=== PATIENT | male | born 1935 | race Caucasian/White ===

== ENCOUNTER 2017-06-22 16:21 | Emergency (ER) | payer MEDICARE, OTHER ==
[~2017-06-22] VITALS: Ht 167.6 cm; Wt 77.0 kg
[2017-06-22 16:23] VITALS: Ht 167.6 cm; Wt 77.0 kg
--- NOTE | 2017-06-22 17:42 | ERA ---
ER Documentation Chief Complaint Date/Time DATE: 06/22/17 TIME: 17:42 Chief Complaint urinary retention,dysuria since tuesday HPI The patient is a 82-year-old male, presenting with dysuria, polyuria for the last couple days. He denies similar symptoms previously, denies fever, chills, neck pain, chest pain, abdominal pain, vomiting, diarrhea. He complains of constipation for the last couple days. He smokes, denies drinking next Past medical history: BPH, hypertension next Past surgical history: None ROS All systems reviewed and are negative except as per history of present illness. Medications Home Meds Active Scripts Ciprofloxacin Hcl* (Ciprofloxacin Hcl*) 500 Mg Tablet, 250 MG PO BID for 10 Days , TAB Prov:SHIRLEY MCNEIL MD 06/22/17 Reported Medications Ergocalciferol (Vitamin D2) (VITAMIN D2) 50,000 Unit Capsule, 18608 UNIT PO Q7D , CAP 06/22/17 Valsartan-Hydrochlorothiazide (Valsartan-HCTZ) 160-12.5 Mg Tablet, 1 TAB PO DAILY, #30 TAB 06/22/17 Aspirin* (Aspirin* EC) 81 Mg Tablet.dr, 81 MG PO DAILY, TAB 06/22/17 Tamsulosin Hcl* (Tamsulosin Hcl*) 0.4 Mg Cap.er.24h, 0.4 MG PO HS, CAP 06/22/17 Allergies Allergies: Coded Allergies: No Known Allergy (Unverified , 06/22/17) PMhx/Soc History of Surgery: Yes Anesthesia Reaction: No Hx Neurological Disorder: No Hx Respiratory Disorders: No Hx Cardiac Disorders: Yes (HTN) Hx Psychiatric Problems: No Hx Miscellaneous Medical Probl: Yes (BPH) Hx Alcohol Use: Yes (OCCASSIONAL) Hx Substance Use: No Hx Tobacco Use: Yes (CIGARETTE 2 PACKS/DAY) Physical Exam Vitals Vital Signs Date Time Temp Pulse Resp B/P Pulse Ox O2 Delivery O2 Flow Rate FiO2 06/22/17 16:23 99.0 72 21 133/56 97 Physical Exam Const: No acute distress. Head: Atraumatic. Eyes: Normal Conjunctiva. ENT: Normal External Ears, Nose and Mouth. Neck: Full range of motion. No meningismus. Resp: Clear to auscultation bilaterally. Cardio: Regular rate and rhythm. Abd: Soft, non distended, normal bowel sounds, Distended urinary bladder Skin: No petechiae or rashes. Back: No midline or flank tenderness. Ext: No cyanosis, or edema. Neur: Awake and alert. No focal deficit Psych: Normal Mood and Affect. Result Diagram: 06/22/17180906/22/171809 Results 24 hrs Laboratory Tests Test 06/22/17 18:10 06/22/17 18:39 White Blood Count 9.910^3/ul Red Blood Count 4.7210^6/ul Hemoglobin 14.0g/dl Hematocrit 43.2% Mean Corpuscular Volume 91.5fl Mean Corpuscular Hemoglobin 29.7pg Mean Corpuscular Hemoglobin Concent 32.4g/dl Red Cell Distribution Width 13.7% Platelet Count 92549^3/UL Mean Platelet Volume 9.9fl Neutrophils % 53.9% Lymphocytes % 30.8% Monocytes % 7.5% Eosinophils % 6.0% Basophils % 0.8% Nucleated Red Blood Cells % 0.0/100WBC Neutrophils # 5.310^3/ul Lymphocytes # 3.010^3/ul Monocytes # 0.710^3/ul Eosinophils # 0.610^3/ul Basophils # 0.110^3/ul Nucleated Red Blood Cells # 0.010^3/ul Sodium Level 144mmol/L Potassium Level 4.1mmol/L Chloride Level 109mmol/L Carbon Dioxide Level 28mmol/L Anion Gap 11 Blood Urea Nitrogen 31mg/dl Creatinine 1.62mg/dl Glucose Level 92mg/dl Calcium Level 9.1mg/dl Total Bilirubin 0.2mg/dl Direct Bilirubin 0.00mg/dl Indirect Bilirubin 0.2mg/dl Aspartate Amino Transf (AST/SGOT) 23IU/L Alanine Aminotransferase (ALT/SGPT) 41IU/L Alkaline Phosphatase 59IU/L Total Protein 7.3g/dl Albumin 3.9g/dl Globulin 3.40g/dl Albumin/Globulin Ratio 1.14 Bedside Urine pH (LAB) 7.0 Bedside Urine Protein (LAB) 2+ Bedside Urine Glucose (UA) Negative Bedside Urine Ketones (LAB) Negative Bedside Urine Blood 2+ Bedside Urine Nitrite (LAB) Negative Bedside Urine Leukocyte Esterase (L 1+ Current Medications Medications (Trade) Dose Ordered Sig/Rita Route PRN Reason Start Time Stop Time Status Last Admin Dose Admin Lidocaine (Lidocaine 2% Urojet) 20 ml ONCE ONCE MM 06/22/17 18:00 06/22/17 18:02 DC 06/22/17 18:31 Ciprofloxacin 250 mg 250 mg ONCE ONCE PO 06/22/17 19:00 06/22/17 19:01 Cancel Ciprofloxacin/ Dextrose (Cipro Ivpb) 100 ml @ 100 mls/hr ONCE ONCE IVPB 06/22/17 19:30 06/22/17 20:29 Procedures/MDM MEDICAL MAKING DECISION: The patient is a 82-year-old male, presenting with acute urinary retention, acute cystitis, acute renal insufficiency. He was asked to avoid, then the Stevenson catheter was inserted after talking about 800 mL plus of urine with spontaneous relief. He was treated with Cipro IV for acute cystitis Consultation: I discussed the patient with the on-call urologist Dr. Weeks, who was made aware of the lab, the treatment, the patient condition. He recommended to discharge the patient and he would follow-up in the office Departure Diagnosis: Primary Impression: Urinary retention Additional Impressions: UTI (urinary tract infection) Renal insufficiency Condition: Stable Comments He was discharged with a leg bag, Cipro I discussed the findings with the patient. I advised the patient to follow-up with Dr. Weeks and tube sizer and cutter operator in about 1-2 days, sooner if needed and return if any concern. SHIRLEY MCNEIL MD Jun 22, 2017 17:42
[2017-06-22] MEDS ORDERED: LIDOCAINE 2% 20 ML UROJET SYRINGE MM ONE (18:00)
[2017-06-22 18:22] LABS: BASOPHIL # 0.1 10^3/ul (0.0-0.1); BASOPHILS % 0.8 % (0.0-2.0); EOSINOPHILS # 0.6 10^3/ul (0.0-0.5); HEMATOCRIT 43.2 % (42.0-52.0); LYMPHOCYTES % 30.8 % (15.0-51.0); MEAN CORPUSCULAR HEMOGLOBIN 29.7 pg (29.0-33.0); MEAN CORPUSCULAR HGB CONC 32.4 g/dl (32.0-37.0); MEAN CORPUSCULAR VOLUME 91.5 fl (82.0-101.0); MEAN PLATELET VOLUME 9.9 fl (7.4-10.4); MONOCYTE # 0.7 10^3/ul (0.3-0.9); MONOCYTES % 7.5 % (0.0-11.0); NEUTROPHIL # 5.3 10^3/ul (1.6-7.5); NEUTROPHILS % 53.9 % (39.0-77.0); PLATELET COUNT 174 10^3/UL (140-415); RED BLOOD COUNT 4.72 10^6/ul (4.70-6.10); RED CELL DISTRIBUTION WIDTH 13.7 % (11.5-14.5); WHITE BLOOD COUNT 9.9 10^3/ul (4.8-10.8)
[2017-06-22] MEDS ORDERED: TAMS0.4C2 PO (18:27)
[2017-06-22] MEDS ORDERED: VALS1TAB76 PO (18:28)
[2017-06-22] MEDS ORDERED: ASPI-664 PO (18:28)
[2017-06-22] MEDS ORDERED: ERGO500037 PO (18:29)
[2017-06-22 18:31] LABS: URINE BLOOD (Dip) POC 2+ (NEGATIVE)
[2017-06-22 18:43] LABS: ALBUMIN 3.9 g/dl (3.3-4.9); ALBUMIN/GLOBULIN RATIO 1.14; BILIRUBIN,INDIRECT 0.2 mg/dl (0-1.1); BILIRUBIN,TOTAL 0.2 mg/dl (0.2-1.3); CALCIUM 9.1 mg/dl (8.4-10.2); CREATININE 1.62 mg/dl (0.61-1.24); POTASSIUM 4.1 mmol/L (3.5-5.1); TOTAL PROTEIN 7.3 g/dl (6.1-8.1)
[2017-06-22] MEDS ORDERED: CIPR500T4 PO (18:54)
[2017-06-22] MEDS ORDERED: CIPROFLOXACIN 250 MG TAB PO ONE (19:00)
[2017-06-22] MEDS ORDERED: CIPROFLOXACIN 200 MG/D5W IVPB 100 ML IVPB ONE (19:30)
[2017-06-22 20:54] VITALS: BP 126/81; PULSE 82; RESP 19; TEMP 99
== END 2017-06-22 20:54 | disposition home or self-care (01) ==
LOC: E/R 16:21
DX: R33.9 Retention of urine, unspecified (principal); N39.0 Urinary tract infection, site not specified; N28.9 Disorder of kidney and ureter, unspecified; I10 Essential (primary) hypertension; F17.210 Nicotine dependence, cigarettes, uncomplicated; Z79.82 Long term (current) use of aspirin
CPT/HCPCS: 80053; 81003; 85025; 87086; J0744; 36415; 96374

== ENCOUNTER 2017-06-28 17:03 | Emergency (ER) | payer MEDICARE, OTHER ==
[~2017-06-28] VITALS: Ht 160 cm; Wt 76.0 kg
[~2017-06-28 17:03] MED LIST: ASPI-664 PO; CIPR500T4 PO; ERGO500037 PO; TAMS0.4C2 PO; VALS1TAB76 PO
[2017-06-28 17:05] VITALS: Ht 160 cm; Wt 76.0 kg
[2017-06-28] MEDS ORDERED: LIDOCAINE 2% 20 ML UROJET SYRINGE MM ONE (18:00)
--- NOTE | 2017-06-28 18:42 | ERD ---
ER Documentation Chief Complaint Date/Time DATE: 06/28/17 TIME: 18:35 Chief Complaint URINARY RETENTION HPI 82-year-old male presents with a history of being unable to urinate the last day. History significant for having a Stevenson catheter placed a week ago and having removed 2 days ago. Patient has a history of prostatism has been on Flomax for many years. He has a urology appointment scheduled within the next 1 -2 weeks. He has no fevers or vomiting. ROS All systems reviewed and are negative except as per history of present illness. Medications Home Meds Active Scripts Ciprofloxacin Hcl* (Ciprofloxacin Hcl*) 500 Mg Tablet, 250 MG PO BID for 10 Days , TAB Prov:SHIRLEY MCNEIL MD 06/22/17 Reported Medications Ergocalciferol (Vitamin D2) (VITAMIN D2) 50,000 Unit Capsule, 32009 UNIT PO Q7D , CAP 06/22/17 Valsartan-Hydrochlorothiazide (Valsartan-HCTZ) 160-12.5 Mg Tablet, 1 TAB PO DAILY, #30 TAB 06/22/17 Aspirin* (Aspirin* EC) 81 Mg Tablet.dr, 81 MG PO DAILY, TAB 06/22/17 Tamsulosin Hcl* (Tamsulosin Hcl*) 0.4 Mg Cap.er.24h, 0.4 MG PO HS, CAP 06/22/17 Allergies Allergies: Coded Allergies: No Known Allergy (Unverified , 06/28/17) PMhx/Soc Medical and Surgical Hx: pt denies Medical Hx, pt denies Surgical Hx History of Surgery: Yes Anesthesia Reaction: No Hx Neurological Disorder: No Hx Respiratory Disorders: No Hx Cardiac Disorders: Yes (HTN) Hx Psychiatric Problems: No Hx Miscellaneous Medical Probl: Yes (BPH) Hx Alcohol Use: Yes (OCCASSIONAL) Hx Substance Use: No Hx Tobacco Use: Yes (CIGARETTE 2 PACKS/DAY) Smoking Status: Current every day smoker Physical Exam Vitals Vital Signs Date Time Temp Pulse Resp B/P Pulse Ox O2 Delivery O2 Flow Rate FiO2 06/28/17 17:05 98.7 75 18 161/73 99 Physical Exam Const: [], [id number]. Head: Atraumatic Eyes: Normal Conjunctiva ENT: Normal External Ears, Nose and Mouth. Neck: Full range of motion..~ No meningismus. Resp: Clear to auscultation bilaterally Cardio: Regular rate and rhythm, no murmurs Abd: Soft, non tender, non distended. Normal bowel sounds Skin: No petechiae or rashes Back: No midline or flank tenderness Ext: No cyanosis, or edema Neur: Awake and alert Psych: Normal Mood and Affect Results 24 hrs Current Medications Medications (Trade) Dose Ordered Sig/Rita Route PRN Reason Start Time Stop Time Status Last Admin Dose Admin Lidocaine (Lidocaine 2% Urojet) 20 ml ONCE ONCE MM 06/28/17 18:00 06/28/17 18:01 DC 06/28/17 18:07 Procedures/MDM The catheter was placed. Clear yellow urine was obtained approximately 750 cc. Patient presents with urinary retention with placement of Stevenson catheter. Leg bag was placed. Patient has good outpatient urology follow-up. There is no current evidence to suggest sepsis, renal failure, additional acute abnormalities. Patient discharged home with urology follow-up and return precautions and further observation. The patient was stable with no new complaints during the ER course. Clinically, there is no current evidence to suggest meningitis, sepsis, acute abdomen, pneumonia, acute coronary syndrome, pulmonary embolism, or any other emergent condition appearing to require further evaluation or hospitalization. The patient should certainly return for any new or worsening symptoms per the aftercare instructions. They should otherwise follow-up with her primary care doctor for reevaluation this week. Departure Diagnosis: Primary Impression: Retention of urine Condition: Stable Patient Instructions: Urinary Retention, Male Additional Instructions: Urologist as scheduled. Recheck for fevers, vomiting, new symptoms. HERNÁN MULTANI MD Jun 28, 2017 18:42
[2017-06-28 18:45] LABS: ADD UMIC YES; UR ASCORBIC ACID NEGATIVE (NEGATIVE); UR BACTERIA MANY /HPF (NONE SEEN); UR BILIRUBIN (Dip) NEGATIVE (NEGATIVE); UR BLOOD (Dip) 2+ mg/dL (NEGATIVE); UR CLARITY CLOUDY (CLEAR); UR COLOR YELLOW (YELLOW); UR GLUCOSE (Dip) NEGATIVE (NEGATIVE); UR KETONES (Dip) NEGATIVE (NEGATIVE); UR LEUKOCYTE ESTERASE (Dip) 3+ Leu/ul (NEGATIVE); UR NITRITE (Dip) NEGATIVE (NEGATIVE); UR RBC 16 /HPF (0-5); UR SPECIFIC GRAVITY (Dip) 1.012 (1.003-1.030); UR TOTAL PROTEIN (Dip) 2+ mg/dl (NEGATIVE); UR UROBILINOGEN (Dip) NEGATIVE (NEGATIVE)
[2017-06-28 18:49] VITALS: BP 157/70; PULSE 84; RESP 17; TEMP 98.7
== END 2017-06-28 18:51 | disposition home or self-care (01) ==
LOC: FTE 17:03
DX: R33.9 Retention of urine, unspecified (principal); I10 Essential (primary) hypertension; F17.210 Nicotine dependence, cigarettes, uncomplicated; Z79.82 Long term (current) use of aspirin
CPT/HCPCS: 81001; 87086